=== PATIENT | female | born 1955 | race Caucasian/White ===

== ENCOUNTER 2018-02-07 07:45 | Outpatient (CLI) | payer OTHER ==
--- NOTE | 2018-02-12 13:15 | Mammography Report ---
DIGITAL SCREENING MAMMOGRAM: 02/07/2018 CLINICAL INDICATION: A 62-year-old with family history of breast cancer, history of benign biopsy for screening. COMPARISON: 07/2011, 07/2010, 03/2008. TECHNIQUE: Routine CC and MLO projections were obtained of the breasts. FINDINGS: The breasts again demonstrate scattered fibroglandular densities bilaterally. Post-biopsy changes in the right lower inner posterior breast are stable. Coarse and punctate, typically benign calcifications are present. No suspicious masses, clustered microcalcifications, or regions of architectural distortion are identified. IMPRESSION: BENIGN FINDINGS. RECOMMENDATION: Routine annual screening unless otherwise clinically indicated. BI-RADS CATEGORY 2 - BENIGN FINDINGS. STANDARD QUALIFYING STATEMENTS: 1. This examination was reviewed with the aid of Computer-Aided Detection (CAD). 2. A negative or benign imaging report should not delay biopsy if clinically suspicious findings are present. Consider surgical consultation if warranted. More than 5% of cancers are not identified by imaging. 3. Dense breasts may obscure an underlying neoplasm. TD: 02/12/2018 12:53
== END 2018-02-07 07:46 | disposition home or self-care (01) ==
LOC: DI 07:45
PROVIDERS: ATTEND Physician Assistant
DX: Z12.31 Encounter for screening mammogram for malignant neoplasm of breast (principal)
CPT/HCPCS: 77067

== ENCOUNTER 2018-02-07 07:56 | Outpatient (CLI) | payer OTHER ==
--- NOTE | 2018-02-07 09:58 | Ultrasound Report ---
SCREENING AORTA ULTRASOUND: 02/07/2018 COMPARISON: No comparison. INDICATION: Screening for AAA. TECHNIQUE: Real-time scanning was performed with member service representative static images obtained. FINDINGS No evidence of abdominal aortic aneurysm. No appreciable plaque. Proximal aorta 2.3 cm. Mid aorta 1.9 cm. Distal aorta 1.9 cm. Right iliac artery 1.3 cm. Left iliac artery 1.3 cm. IMPRESSION: NO EVIDENCE OF ABDOMINAL AORTIC ANEURYSM. ADDENDUM 02/08/2018 TO AORTA SCREENING ULTRASOUND of 02/07/2018 ADDENDUM: Upon further review, there is an ill-defined echogenic focus in the left lobe of the liver that is poorly evaluated, but warrants additional imaging. Recommend dedicated abdominal ultrasound for further evaluation of the liver. These results were discussed with the ordering provider 02/08/18 at 1:00 p.m. and they expressed understanding. (addendum info:) TD: 02/08/2018 12:52 TD: 02/07/2018 09:58 JEREMIAH
== END 2018-02-07 07:57 | disposition home or self-care (01) ==
LOC: DI 07:56
PROVIDERS: ATTEND Physician Assistant
DX: Z13.89 Encounter for screening for other disorder (principal); F17.200 Nicotine dependence, unspecified, uncomplicated
CPT/HCPCS: 76706

== ENCOUNTER 2018-10-11 07:55 | Outpatient (CLI) | payer OTHER ==
[2018-10-11 08:41] LABS: BASOPHILS % (AUTO) 0.7 %; EOSINOPHILS # (AUTO) 0.1 10^3/uL (0.0-0.7); EOSINOPHILS % (AUTO) 1.8 %; LYMPHOCYTES # (AUTO) 1.4 10^3/uL (1.5-3.5); LYMPHOCYTES % (AUTO) 22.1 %; MEAN CORPUSCULAR HEMOGLOBIN 31.6 pg (27.0-31.0); MEAN CORPUSCULAR HGB CONC 33.9 g/dL (32.0-36.0); MEAN CORPUSCULAR VOLUME 93.2 fL (81.0-99.0); MEAN PLATELET VOLUME 7.8 fL (7.9-10.8); MONOCYTES # (AUTO) 0.6 10^3/uL (0.0-1.0); MONOCYTES % (AUTO) 9.8 %; NEUTROPHILS # (AUTO) 4.3 10^3/uL (1.5-6.6); NEUTROPHILS % (AUTO) 65.6 %; PLT - PLATELET COUNT 246 10^3/uL (130-450); RED BLOOD COUNT 4.44 10^6/uL (4.20-5.40); RED CELL DISTRIBUTION WIDTH 14.2 % (12.0-15.0); WHITE BLOOD COUNT 6.5 x10^3/uL (4.8-10.8)
[2018-10-11 08:49] LABS: ALBUMIN 4.2 g/dL (3.2-5.5); ALBUMIN/GLOBULIN RATIO 1.3 (1.0-2.2); BILIRUBIN,TOTAL 0.9 mg/dL (0.2-1.0); CALCIUM 9.1 mg/dL (8.5-10.3); CREATININE 0.8 mg/dL (0.4-1.0); TOTAL PROTEIN 7.4 g/dL (6.7-8.2)
== END 2018-10-11 07:56 | disposition home or self-care (01) ==
LOC: RT 07:55
PROVIDERS: ATTEND Internal Medicine Gastroenterology
DX: I10 Essential (primary) hypertension (principal); R00.2 Palpitations; R10.11 Right upper quadrant pain
CPT/HCPCS: 36415; 80053; 83690; 85025; 93005

== ENCOUNTER 2018-10-24 07:58 | Day surgery (SDC) | payer OTHER ==
[2018-10-24] MEDS ORDERED: LIDO GARGLE 30 ML BOTTLE ONE (08:27)
[2018-10-24] MEDS ORDERED: LACTATED RINGERS 1,000 ML IV ONE ×2 (08:30→10:15)
[2018-10-24] MEDS ORDERED: MIDAZOLAM 2 MG/2 ML VIAL IVP ONE (09:40)
[2018-10-24] MEDS ORDERED: fentaNYL 250 MCG/5 ML VIAL IVP ONE (09:40)
[2018-10-24 10:55] VITALS: BP 122/86
== END 2018-10-24 07:59 | disposition home or self-care (01) ==
LOC: SDS 07:58
PROVIDERS: ATTEND Internal Medicine Gastroenterology
PROC: 0DBN8ZZ Excision of Sigmoid Colon, Via Natural or Artificial Opening Endoscopic (ICD-10-PCS; principal; 2018-10-24 09:15)
PROC: 0DB98ZX Excision of Duodenum, Via Natural or Artificial Opening Endoscopic, Diagnostic (ICD-10-PCS; 2018-10-24 09:15)
DX: Z12.11 Encounter for screening for malignant neoplasm of colon (principal); R10.11 Right upper quadrant pain; I10 Essential (primary) hypertension; E78.00 Pure hypercholesterolemia, unspecified; D12.5 Benign neoplasm of sigmoid colon; F17.210 Nicotine dependence, cigarettes, uncomplicated
CPT/HCPCS: 43239; 45380; A9270; J3010; J7120

== ENCOUNTER 2018-12-30 22:25 | Emergency (ER) | payer OTHER ==
--- NOTE | 2018-12-30 23:54 | ED Physician Documentation ---
PD HPI LOWER EXT INJURY - Stated complaint Stated Complaint: RT KNEE PX - Chief complaint Chief Complaint: Ext Problem - History obtained from History obtained from: Patient - History of Present Illness PD HPI LOW EXT INJURY LOCATION: Right, Knee Type of injury: Twist (2 weeks ago with some pain then, but hurting mainly the past few days, worse today.). No: Fall Timing - onset: How many weeks ago (2) Timing - duration: Weeks (2) Timing - details: Gradual onset, Still present (worse the past few days and today) Worsened by: Palpating (side and back), Other (walking hurts the most) Associated symptoms: Other (some clicking and popping). 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 HEENT: Other - Present Medications Home Medications: Ambulatory Orders Medication Instructions Recorded Confirmed Aspirin 81 mg PO 10/24/18 Cholecalciferol (Vitamin D3) 2,000 unit PO 10/24/18 [Vitamin D] Fluoxetine HCl 40 mg PO 10/24/18 Levothyroxine Sodium [Levoxyl] 175 mcg PO 10/24/18 Losartan [Cozaar] 50 mg PO DAILY 10/24/18 10/24/18 Lovastatin 20 mg PO 10/24/18 Metoprolol Succinate 25 mg PO 10/24/18 - Allergies Allergies/Adverse Reactions: Allergies Allergy/AdvReac Type Severity Reaction Status Date / Time No Known Drug Allergies Allergy Verified 10/24/18 08:32 - Social History Does the pt smoke?: No Smoking Status: Never smoker Does the pt drink ETOH?: No - POLST Patient has POLST: No PD ED PE NORMAL - Vitals Vital signs reviewed: Yes - General General: Alert and oriented X 3, No acute distress, Well developed/nourished - Back Back: No CVA TTP, No spinal TTP - Derm Derm: Normal color, Warm and dry, No rash - Extremities Extremities: No edema, No calf tenderness / cord, Other (right knee with some tenderness posteriorly and medially. No effusion. No redness nor skin lesions. Pain with passive ROM, but no crepitance. No noted clicking. ) - Neuro Neuro: Alert and oriented X 3, No motor deficit, No sensory deficit Results - Vitals Vitals: Vital Signs - 24 hr 12/30/18 12/31/18 22:31 01:26 Temperature 37.5 C 36.7 C Heart Rate 75 65 Respiratory 16 14 Rate Blood Pressure 136/94 H 143/98 H O2 Saturation 100 97 Oxygen O2 Source Room air - Rads (name of study) right knee Radiology: Prelim report reviewed (no acute bony process. Arthritic changes noted.), EMP read contemporaneously PD MEDICAL DECISION MAKING - ED course Complexity details: re-evaluated patient (she has taken Aleve couple of times past few days. Will have her use NSAIDs regularly. She declined stronger pain meds. ), considered differential (sounds like arthritis or possible meniscal. ), d/w patient Departure - Departure Disposition: 01 Home, Self Care Clinical Impression: Right knee pain Qualifiers: Chronicity: acute Qualified Code(s): M25.561 - Pain in right knee Condition: Stable Record reviewed to determine appropriate education?: Yes Instructions: ED Meniscal Injury Knee Poss Follow-Up: Jeni Dolan PA [Primary Care Provider] - [facility] [Provider Group] Comments: I think your pain may either be arthritis to the knee or possibly some meniscal inflammation. Take the Aleve at home 2 tablets 3 times a day for the next week. Add Tylenol if needed for pains. Follow-up with your primary care or orthopedics if not improved over that time for further evaluation and treatment. Discharge Date/Time: 12/31/18 01:40
[2018-12-31] MEDS ORDERED: ACETAMINOPHEN 325 MG TABLET PO STA (00:13)
[2018-12-31] MEDS ORDERED: DEXAMETHASONE 10 MG/ML VIAL PO STA (01:01)
--- NOTE | 2018-12-31 01:06 | XRAY Report ---
Reason: knee pain for a week or so Procedure Date: 12/31/2018 Accession Number: [id number] / [id number] Procedure: XR - Knee 3 View RT CPT Code: FULL RESULT: EXAM: RIGHT KNEE RADIOGRAPHY EXAM DATE: 12/31/2018 12:52 AM. CLINICAL HISTORY: Knee pain for a week or so. COMPARISON: None. TECHNIQUE: 3 views. FINDINGS: Bones: Normal. No fractures or bone lesions. Joints: There are degenerative changes at all 3 compartments of the knee. There are marginal osteophytes. There is no chondrocalcinosis. No significant joint effusion. Soft Tissues: Normal. No soft tissue swelling. IMPRESSION: Degenerative changes at all 3 compartments of the knee. No acute findings. RADIA
[2018-12-31 01:27] VITALS: BP 143/98
== END 2018-12-31 01:40 | disposition home or self-care (01) ==
LOC: ED 22:25
DX: M25.561 Pain in right knee (principal); I10 Essential (primary) hypertension; E78.00 Pure hypercholesterolemia, unspecified; E03.9 Hypothyroidism, unspecified
CPT/HCPCS: 73562; 99283; A9270

== ENCOUNTER 2019-07-17 08:52 | Day surgery (SDC) | payer OTHER ==
[~2019-07-17 08:52] MED LIST: CYCLOPENTOLATE 1% OPHTH DROPS 2 ML ONE; KETOROLAC 0.45% OPHTH DROPS ONE; PHENYLEPHRINE 2.5% OPHTH 2 ML DROPS ONE; PROPARACAINE 0.5% OPHTH DROPS 15 ML ONE
[2019-07-17] MEDS ORDERED: MIDAZOLAM 2 MG/2 ML VIAL IVP ONE (08:53)
--- NOTE | 2019-07-17 09:07 | ANESTHESIA ---
Pre-Anesthesia VS, & Labs - Diagnosis right senile combined cataract - Procedure Right cataract extraction with intraocular lens implant Vital Signs: 149/88, 16, 65, 99% Height 5 ft 6 in Body Mass Index 38.0 - NPO >8 hours - Is Patient ?: No Home Medications and Allergies Aspirin 81 mg PO 10/24/18 Cholecalciferol (Vitamin D3) [Vitamin D] 2,000 unit PO 10/24/18 Fluoxetine HCl 40 mg PO 10/24/18 Levothyroxine Sodium [Levoxyl] 175 mcg PO 10/24/18 Losartan [Cozaar] 50 mg PO DAILY 10/24/18 Lovastatin 20 mg PO 10/24/18 Metoprolol Succinate 25 mg PO 10/24/18 Allergies/Adverse Reactions: Allergies Allergy/AdvReac Type Severity Reaction Status Date / Time No Known Drug Allergies Allergy Verified 10/24/18 08:32 Anes History & Medical History - Anesthetic History Anesthesia Complications: reports: No previous complications - Medical History Cardiovascular: reports: Hypertension, High cholesterol, Murmur (unable to hear) Pulmonary: reports: None Gastrointestinal: reports: GERD Urinary: reports: None Musculoskeletal: reports: None Endocrine/Autoimmune: reports: HyPOthyroidism Skin: reports: None Smoking Status: Never smoker - Surgical History Eyes Ears Nose Throat (EENT): Other Gynecologic: section Orthopedic: Other Exam General: Alert Dental: WNL Mouth Opening: Greater than 4 Fingerbreadths Neck Mobility: Normal Mallampati classification: II (small mouth) Thyromental Distance: 4-6 cm Respiratory: Lungs clear, Normal breath sounds Cardiovascular: Regular rate, Normal S1, Normal S2 Plan Anesthesia Type: MAC Consent for Procedure(s) Verified and Reviewed: Yes Code Status: Attempt Resuscitation ASA classification: 2-Mild systemic disease Is this case an emergency?: No
[2019-07-17] MEDS ORDERED: LACTATED RINGERS 500 ML IV ONE (09:09)
[2019-07-17] MEDS ORDERED: KETOROLAC 0.45% OPHTH DROPS RIGHTEYE ONE (09:13)
[2019-07-17] MEDS ORDERED: PROPARACAINE 0.5% OPHTH DROPS 15 ML RIGHTEYE ONE ×2 (09:13→09:51)
[2019-07-17] MEDS ORDERED: CYCLOPENTOLATE 1% OPHTH DROPS 2 ML RIGHTEYE ONE (09:13)
[2019-07-17] MEDS ORDERED: PHENYLEPHRINE 2.5% OPHTH 2 ML DROPS RIGHTEYE ONE (09:13)
[2019-07-17] MEDS ORDERED: CHONDR SULF/HYALURONATE SYRINGE IO ONE (09:50)
[2019-07-17] MEDS ORDERED: EPINEPHrine 1 MG/ML AMP IVP ONE (09:50)
[2019-07-17] MEDS ORDERED: TIMOLOL 0.5% OPHTH DROPS OPTH ONE (09:50)
[2019-07-17] MEDS ORDERED: BRIMONIDINE 0.2% OPHTH DROPS 5 ML OPTH ONE (09:50)
[2019-07-17] MEDS ORDERED: BSS/LIDOCAINE/EPINEPHRINE 1 ML SYRINGE IO ONE (09:51)
[2019-07-17] MEDS ORDERED: TRIAMCIN/MOXIFLOX OPHTHALMIC 0.6 ML VIAL IO ONE ×2 (09:51→10:18)
[2019-07-17] MEDS ORDERED: VANCOMYCIN OPHTHALMI 8MG/0.8ML 8 MG/0.8 ML SYRINGE IO ONE ×2 (09:51→10:19)
--- NOTE | 2019-07-17 10:18 | OPERATIVE REPORT ---
DATE OF SERVICE: 07/17/2019 Physician: Jesus Bertrand MD PREOPERATIVE DIAGNOSIS: Visually significant cataract, right eye. This was her first cataract surge ry. POSTOPERATIVE DIAGNOSIS: Visually significant cataract, right eye. This was her first cataract surg delilah. DESCRIPTION OF PROCEDURE: Phacoemulsification with posterior chamber intraocular lens implant, right eye. SURGEON: Jesus Bertrand MD ANESTHESIA: Monitored anesthesia care. COMPLICATIONS: None. OPERATIVE INDICATIONS: This is a 63-year-old woman with progressive vision loss in the right eye due to 2+ nuclear sclerotic and 2-3+ posterior subcapsular cataract. Best corrected visual acuity was 2 0/25, with glare to 20/200 in the right eye. Indications for surgery are overall decrease in vision, difficulty seeing words on a computer screen, difficulty reading, difficulty seeing words, closed ca ption or game scores on TV, difficulty seeing street signs, difficulty driving in low light or at nig ht, difficulty driving at night because headlights from other vehicles, and difficulty with glare or bright lights in any situation. She was consented at length concerning risks and benefits of catarac t surgery, after which she expressed a desire to proceed with surgery. OPERATIVE PROCEDURE: The patient was taken to OR #3 and placed under monitored anesthesia care. A s urgical timeout was conducted confirming correct patient, correct procedure, and correct surgical sit e. She was given topical anesthesia, and prepped and draped in the usual sterile fashion. The eye w as entered at the 12 and 9 o'clock positions. Intracameral Shugarcaine was injected into the anterio r chamber, followed by Viscoat. A continuous-tear curvilinear capsulorrhexis was performed. The nuc leus was hydrodissected and phacoemulsified. Cortex was evacuated using automated infusion and aspir ation. Provisc was injected in the capsular bag, and a 22.5 diopter intraocular lens inserted in the bag. Approximately 0.8 mL of a mixture of triamcinolone, moxifloxacin and vancomycin was injected s ubconjunctivally in the superior quadrant for infection and inflammation prophylaxis. I and A, was u sed to evacuate the viscoelastic materials. The eye was inflated to physiologic pressure using tamir natalya salt solution and found to be watertight. The patient was taken from the operating room in good condition and given postoperative instructions. TD: 07/17/2019 10:06
[2019-07-17] MEDS ORDERED: BSS/LIDOCAINE/EPINEPHRINE 1 ML SYRINGE ONE (10:19)
[2019-07-17] MEDS ORDERED: BRIMONIDINE 0.2% OPHTH DROPS 5 ML ONE (10:19)
[2019-07-17] MEDS ORDERED: EPINEPHrine 1 MG/ML AMP ONE (10:19)
[2019-07-17] MEDS ORDERED: TIMOLOL 0.5% OPHTH DROPS ONE (10:19)
[2019-07-17 10:55] VITALS: BP 126/68
== END 2019-07-17 08:53 | disposition home or self-care (01) ==
LOC: SDS 08:52
PROVIDERS: ATTEND Ophthalmology
PROC: 08RJ3JZ Replacement of Right Lens with Synthetic Substitute, Percutaneous Approach (ICD-10-PCS; principal; 2019-07-17 10:00)
DX: H25.811 Combined forms of age-related cataract, right eye (principal); I10 Essential (primary) hypertension; E03.9 Hypothyroidism, unspecified; Z87.891 Personal history of nicotine dependence
CPT/HCPCS: 66984; A9270; J3490; V2632

== ENCOUNTER 2019-09-03 08:42 | Outpatient (CLI) | payer OTHER ==
[2019-09-03 09:25] LABS: ALBUMIN 4.2 g/dL (3.2-5.5); ALBUMIN/GLOBULIN RATIO 1.4 (1.0-2.2); ALKALINE PHOSPHATASE 64 IU/L (42-121); ALT ALANINE AMINOTRANSFERASE 34 IU/L (10-60); AST ASPARTATE AMINOTRANSFERASE 28 IU/L (10-42); BILIRUBIN,TOTAL 0.8 mg/dL (0.2-1.0); BUN - BLOOD UREA NITROGEN 16 mg/dL (6-20); CALCIUM 9.2 mg/dL (8.5-10.3); CARBON DIOXIDE - CO2 26 mmol/L (21-32); CHLORIDE 105 mmol/L (101-111); CHOL/HDL RATIO 3.7 (<4.4); CHOLESTEROL 158 mg/dL; CREATININE 0.7 mg/dL (0.4-1.0); GFR - MDRD 85 (>89); GLUCOSE 114 mg/dL (70-100); HDL CHOLESTEROL 43 mg/dL; LDL CHOLESTEROL,CALCULATED 90 mg/dL; LDL/HDL RATIO 2.1 (<4.4); SODIUM 138 mmol/L (135-145); TOTAL PROTEIN 7.1 g/dL (6.7-8.2); VLDL CHOLESTEROL 25 mg/dL
== END 2019-09-03 08:43 | disposition home or self-care (01) ==
LOC: LAB 08:42
PROVIDERS: ATTEND Physician Assistant
DX: E03.9 Hypothyroidism, unspecified (principal); E78.2 Mixed hyperlipidemia
CPT/HCPCS: 36415; 80053; 80061; 83721; 84443

== ENCOUNTER 2020-08-04 08:29 | Outpatient (CLI) | payer BC ==
[2020-08-04 08:41] LABS: BASOPHILS # (AUTO) 0.1 10^3/uL (0.0-0.1); BASOPHILS % (AUTO) 0.9 %; EOSINOPHILS # (AUTO) 0.1 10^3/uL (0.0-0.7); EOSINOPHILS % (AUTO) 1.7 %; HGB - HEMOGLOBIN 14.2 g/dL (12.0-16.0); LYMPHOCYTES # (AUTO) 2.1 10^3/uL (1.5-3.5); LYMPHOCYTES % (AUTO) 30.1 %; MEAN CORPUSCULAR HEMOGLOBIN 30.6 pg (27.0-31.0); MEAN CORPUSCULAR HGB CONC 31.5 g/dL (32.0-36.0); MEAN CORPUSCULAR VOLUME 97.2 fL (81.0-99.0); MONOCYTES # (AUTO) 0.8 10^3/uL (0.0-1.0); MONOCYTES % (AUTO) 10.8 %; NEUTROPHILS # (AUTO) 3.9 10^3/uL (1.5-6.6); NEUTROPHILS % (AUTO) 56.2 %; PLT - PLATELET COUNT 295 10^3/uL (130-450); RED BLOOD COUNT 4.64 10^6/uL (4.20-5.40); WHITE BLOOD COUNT 6.9 x10^3/uL (4.8-10.8)
[2020-08-04 08:57] LABS: ALBUMIN 4.3 g/dL (3.2-5.5); ALBUMIN/GLOBULIN RATIO 1.3 (1.0-2.2); ALKALINE PHOSPHATASE 62 IU/L (42-121); ALT ALANINE AMINOTRANSFERASE 22 IU/L (10-60); AST ASPARTATE AMINOTRANSFERASE 21 IU/L (10-42); BILIRUBIN,TOTAL 0.7 mg/dL (0.2-1.0); BUN - BLOOD UREA NITROGEN 13 mg/dL (6-20); CALCIUM 9.4 mg/dL (8.5-10.3); CARBON DIOXIDE - CO2 24 mmol/L (21-32); CHLORIDE 102 mmol/L (101-111); CHOL/HDL RATIO 3.7 (<4.4); CHOLESTEROL 184 mg/dL; CREATININE 0.8 mg/dL (0.4-1.0); GLUCOSE 104 mg/dL (70-100); HDL CHOLESTEROL 50 mg/dL; LDL CHOLESTEROL,CALCULATED 102 mg/dL; SODIUM 139 mmol/L (135-145); TOTAL PROTEIN 7.5 g/dL (6.7-8.2); VLDL CHOLESTEROL 32 mg/dL
[2020-08-04 12:15] LABS: HEMOGLOBIN A1c% 5.2 % (4.27-6.07)
== END 2020-08-04 08:30 | disposition home or self-care (01) ==
LOC: LAB 08:29
PROVIDERS: ATTEND Nurse Practitioner Family
DX: E03.9 Hypothyroidism, unspecified (principal); I10 Essential (primary) hypertension; E78.5 Hyperlipidemia, unspecified; R73.01 Impaired fasting glucose
CPT/HCPCS: 36415; 80053; 80061; 83036; 83721; 84443; 85025

== ENCOUNTER 2020-12-16 08:23 | Outpatient (CLI) | payer OTHER ==
--- NOTE | 2020-12-16 17:16 | DEXA Report ---
PROCEDURE: Dexa Spine and/or Hip INDICATIONS: MENOPAUSAL, FAMILY HX OF OSTEOPOROSIS TECHNIQUE: Dual energy x-ray absorptiometry (DXA) was performed on a Ensenda System. Regions measur ed are the AP Spine, femoral neck, and if needed forearm. COMPARISON: None. FINDINGS: Lumbar Spine: Bone Mineral Density 1.0 A0 g/cm/cm,T score -0.8, normal Left Hip: Bone Mineral Density 0.860 g/cm/cm,T score -1.2, osteopenia Left Femoral Neck: Bone Mineral Density 0.729 g/cm/cm, T score -2.2, osteopenia (T score greater or equal to -1.0: NORMAL) (T score from -1.1 to -2.4: OSTEOPENIA) (T score less than or equal to -2.5 to: OSTEOPOROSIS) Impression: Osteopenia. Patients with diagnosis of osteoporosis or osteopenia should have regular bone mineral density assess ment. For those eligible for Medicare, routine testing is allowed once every 2 years. Testing frequ ency can be increased for patients who have rapidly progressing disease or for those who are receivin g medical therapy to restore bone mass. Reviewed by: Radha Zee MD, PhD on 12/16/2020 5:14 PM PDT Approved by: Radha Zee MD, PhD on 12/16/2020 5:14 PM PDT Station ID: [id number]
== END 2020-12-16 08:24 | disposition home or self-care (01) ==
LOC: DI 08:23
PROVIDERS: ATTEND Physician Assistant
DX: M85.89 Other specified disorders of bone density and structure, multiple sites (principal)

== ENCOUNTER 2020-12-16 08:28 | Outpatient (CLI) | payer OTHER | END 2020-12-16 08:29 | disposition home or self-care (01) | LOC: DI 08:28 | PROVIDERS: ATTEND Physician Assistant | DX: Z53.9 Procedure and treatment not carried out, unspecified reason (principal) ==

== ENCOUNTER 2020-12-16 08:52 | Outpatient (CLI) | payer OTHER ==
--- NOTE | 2020-12-16 09:43 | XRAY Report ---
PROCEDURE: Knee 3 View LT INDICATIONS: PAIN IN LEFT KNEE TECHNIQUE: 3 views of the left knee(s) were acquired. COMPARISON: None. FINDINGS: Moderate degenerative changes about the knee, worst in the medial femorotibial compartment where ther e is near-complete loss of joint space with subchondral cystic change and sclerosis. Marginal osteoar throsis is noted in all 3 compartments. Small suprapatellar joint effusion. IMPRESSION: Moderate tricompartment osteophytes right is worse in the medial femorotibial compartmen t. Reviewed by: Ganesh Rodriguez MD on 12/16/2020 9:42 AM PDT Approved by: Ganesh Rodriguez MD on 12/16/2020 9:42 AM PDT Station ID: [id number]
== END 2020-12-16 08:53 | disposition home or self-care (01) ==
LOC: DI 08:52
PROVIDERS: ATTEND Physician Assistant
DX: M25.762 Osteophyte, left knee (principal); M85.89 Other specified disorders of bone density and structure, multiple sites

== ENCOUNTER 2023-03-09 08:30 | Outpatient (CLI) | payer MEDICARE ==
[2023-03-09 08:45] LABS: BASOPHILS # (AUTO) 0.1 10^3/uL (0.0-0.1); EOSINOPHILS # (AUTO) 0.1 10^3/uL (0.0-0.7); EOSINOPHILS % (AUTO) 1.9 %; HCT - HEMATOCRIT 41.4 % (37.0-47.0); HGB - HEMOGLOBIN 13.5 g/dL (12.0-16.0); LYMPHOCYTES # (AUTO) 1.7 10^3/uL (1.5-3.5); LYMPHOCYTES % (AUTO) 35.3 %; MEAN CORPUSCULAR HGB CONC 32.6 g/dL (32.0-36.0); MEAN PLATELET VOLUME 9.8 fL (7.9-10.8); MONOCYTES # (AUTO) 0.5 10^3/uL (0.0-1.0); MONOCYTES % (AUTO) 10.4 %; NEUTROPHILS # (AUTO) 2.4 10^3/uL (1.5-6.6); PLT - PLATELET COUNT 260 10^3/uL (130-450); RED CELL DISTRIBUTION WIDTH 13.2 % (12.0-15.0); WHITE BLOOD COUNT 4.8 x10^3/uL (4.8-10.8)
[2023-03-09 09:08] LABS: ESTIMATED AVERAGE GLUCOSE 111 mg/dL (70-100); HEMOGLOBIN A1c% 5.5 % (4.27-6.07)
[2023-03-09 09:09] LABS: % IRON SATURATION 20 % (20-50); ALBUMIN/GLOBULIN RATIO 1.1 (1.0-2.2); ALKALINE PHOSPHATASE 60 IU/L (42-121); ALT ALANINE AMINOTRANSFERASE 33 IU/L (10-60); AST ASPARTATE AMINOTRANSFERASE 28 IU/L (10-42); BILIRUBIN,TOTAL 0.6 mg/dL (0.2-1.0); BUN - BLOOD UREA NITROGEN 16 mg/dL (6-20); CALCIUM 8.7 mg/dL (8.5-10.3); CARBON DIOXIDE - CO2 25 mmol/L (21-32); CHLORIDE 106 mmol/L (101-111); CHOL/HDL RATIO 2.9 (<4.4); CHOLESTEROL 184 mg/dL; CREATININE 0.7 mg/dL (0.4-1.0); GAMMA GLUTAMYL TRANSPEPTIDASE 16 IU/L (8-38); GFR - MDRD 84 (>89); GLUCOSE 109 mg/dL (70-100); HDL CHOLESTEROL 64 mg/dL; IRON 84 ug/dL (28-170); LDL CHOLESTEROL,CALCULATED 80 mg/dL; LDL/HDL RATIO 1.3 (<4.4); POTASSIUM 4.1 mmol/L (3.5-5.0); SODIUM 141 mmol/L (135-145); TOTAL IRON BINDING CAPACITY 414 ug/dL (250-450); TOTAL PROTEIN 7.6 g/dL (6.7-8.2); TRANSFERRIN 296 mg/dL (192-382); TRIGLYCERIDES 200 mg/dL; VLDL CHOLESTEROL 40 mg/dL
[2023-03-09 09:19] LABS: THYROID STIMULATING HORMONE 1.08 uIU/mL (0.34-5.60)
[2023-03-09 09:21] LABS: FREE T4 (FREE THYROXINE) 0.98 ng/dL (0.58-1.64)
[2023-03-09 09:26] LABS: FERRITIN 364.3 ng/mL (11.0-306.8)
== END 2023-03-09 08:31 | disposition home or self-care (01) ==
LOC: LAB 08:30
PROVIDERS: ATTEND Nurse Practitioner
DX: I10 Essential (primary) hypertension (principal); E78.5 Hyperlipidemia, unspecified; R73.9 Hyperglycemia, unspecified; E03.9 Hypothyroidism, unspecified; Z98.84 Bariatric surgery status; F10.90 Alcohol use, unspecified, uncomplicated
CPT/HCPCS: 36415; 80053; 80061; 82607; 82728; 82977; 83036; 83540; 83721; 84439; 84443; 84466; 85025

== ENCOUNTER 2023-05-15 08:06 | Outpatient (CLI) | payer MEDICARE ==
--- NOTE | 2023-05-15 10:10 | DEXA Report ---
PROCEDURE: Dexa Spine and/or Hip INDICATIONS: POSTMENOPAUSAL TECHNIQUE: Dual energy x-ray absorptiometry (DXA) was performed on a [employer]age System. Regions measur ed are the AP Spine, femoral neck, and if needed forearm. COMPARISON: 12/16/2020 FINDINGS: Lumbar Spine: Bone Mineral Density 1.064 g/cm/cm,T score -1. There has been no statistically significant change in bone mineral density since the prior study. Left Femoral Neck: Bone Mineral Density 0.729 g/cm/cm, T score -2.2. Left Hip: Bone Mineral Density 0.881 g/cm/cm,T score -1. There has been no statistically significant change in bone mineral density since the prior study. (T score greater or equal to -1.0: NORMAL) (T score from -1.1 to -2.4: OSTEOPENIA) (T score less than or equal to -2.5 to: OSTEOPOROSIS) Impression: By WHO criteria, this patient has low bone density (osteopenia). No statistical interval change in bone minteral density of the lumbar spine. No statistical interval change in bone minteral density of the hip. Patients with diagnosis of osteoporosis or osteopenia should have regular bone mineral density assess ment. For those eligible for Medicare, routine testing is allowed once every 2 years. Testing frequ ency can be increased for patients who have rapidly progressing disease or for those who are receivin g medical therapy to restore bone mass. Reviewed by: Damir Kern on 05/15/2023 10:09 AM PDT Approved by: Damir Kern on 05/15/2023 10:09 AM PDT Station ID: [id number]
== END 2023-05-15 08:07 | disposition home or self-care (01) ==
LOC: DI 08:06
PROVIDERS: ATTEND Nurse Practitioner
DX: Z78.0 Asymptomatic menopausal state (principal); M85.80 Other specified disorders of bone density and structure, unspecified site

== ENCOUNTER 2023-08-02 06:57 | Day surgery (SDC) | payer MEDICARE ==
[2023-08-02] MEDS ORDERED: LACTATED RINGERS 1,000 ML IV ONE (07:07)
--- NOTE | 2023-08-02 07:44 | ANESTHESIA ---
Pre-Anesthesia VS, & Labs - Diagnosis left eye cataract - Procedure left eye cataract extraction with IOL implant Vital Signs: Temp Pulse Resp BP Pulse Ox O2 Flow Rate 36.8 C 69 18 122/81 H 96 08/02/23 07:07 08/02/23 07:07 08/02/23 07:07 08/02/23 07:07 08/02/23 07:07 Height: 5 ft 6 in Weight (kg): 107.6 kg Body Mass Index: 38.2 BMI Classification: Obese - NPO >8 hours - Is Patient ?: No Home Medications and Allergies Home Medications: Ambulatory Orders Alprazolam [Xanax] 0.25 mg PO DAILY 08/01/23 Cholecalciferol (Vitamin D3) [Vitamin D3] 1,000 unit PO DAILY 08/01/23 Rosuvastatin Calcium 20 mg PO DAILY 08/01/23 Fluoxetine HCl 40 mg PO DAILY 10/24/18 Levothyroxine Sodium [Levoxyl] 175 mcg PO DAILY 10/24/18 Losartan [Cozaar] 100 mg PO DAILY 10/24/18 Metoprolol Succinate 12.5 mg PO BID 10/24/18 Alprazolam [Xanax] 0.25 mg PO DAILY 08/01/23 Cholecalciferol (Vitamin D3) [Vitamin D3] 1,000 unit PO DAILY 08/01/23 Rosuvastatin Calcium 20 mg PO DAILY 08/01/23 Allergies/Adverse Reactions: Allergies Allergy/AdvReac Type Severity Reaction Status Date / Time No Known Drug Allergies Allergy Verified 08/02/23 07:07 Anes History & Medical History - Anesthetic History Anesthesia Complications: reports: No previous complications - Medical History Cardiovascular: reports: Hypertension, High cholesterol Pulmonary: reports: None Gastrointestinal: reports: GERD Urinary: reports: None Neuro: reports: None Musculoskeletal: reports: None Endocrine/Autoimmune: reports: HyPOthyroidism Skin: reports: None Smoking Status: Former smoker (quit 5 years ago) Psychosocial: reports: Anxiety, Alcohol (1-2 times per week, 2 glasses of wine) History of Cancer?: No - Surgical History Eyes Ears Nose Throat (EENT): reports: Cataracts, Other Gynecologic: reports: section Orthopedic: reports: Other Exam General: Alert, Oriented x3, Cooperative, No acute distress Dental: Poor dentition Mouth Openin Fingerbreadth Neck Mobility: Normal Mallampati classification: III Thyromental Distance: 4-6 cm Mental/Cognitive Status: Alert/Oriented X3, Normal for patient Plan Anesthesia Type: MAC Consent for Procedure(s) Verified and Reviewed: Yes Code Status: Attempt Resuscitation ASA classification: 2-Mild systemic disease Is this case an emergency?: No
[2023-08-02] MEDS ORDERED: EPINEPHrine 1 MG/ML AMP ONE (07:52)
[2023-08-02] MEDS ORDERED: TRIAMCIN/MOXIFLOX OPHTHALMIC 0.6 ML VIAL IO ONE ×2 (07:52→07:59)
[2023-08-02] MEDS ORDERED: BSS/LIDOCAINE/EPINEPHRINE 1 ML VIAL ONE (07:53)
[2023-08-02] MEDS ORDERED: BRIMONIDINE 0.2% OPHTH DROPS 5 ML ONE (07:53)
[2023-08-02] MEDS ORDERED: TIMOLOL 0.5% OPHTH DROPS ONE (07:53)
[2023-08-02] MEDS ORDERED: MIDAZOLAM 2 MG/2 ML VIAL ONE (07:54)
[2023-08-02] MEDS ORDERED: BRIMONIDINE 0.2% OPHTH DROPS 5 ML OPTH ONE (07:57)
[2023-08-02] MEDS ORDERED: TIMOLOL 0.5% OPHTH DROPS OPTH ONE (07:58)
[2023-08-02] MEDS ORDERED: EPINEPHrine 1 MG/ML AMP IR ONE (07:58)
[2023-08-02] MEDS ORDERED: BSS/LIDOCAINE/EPINEPHRINE 1 ML SYRINGE IO ONE (07:58)
[2023-08-02] MEDS ORDERED: PROPARACAINE 0.5% OPHTH DROPS 15 ML EACHEYE ONE (07:59)
[2023-08-02] MEDS ORDERED: VANCOMYCIN OPHTH (TOPICAL) 10 MG/ML SYRINGE TOP ONE (07:59)
[2023-08-02] MEDS ORDERED: fentaNYL 100 MCG/2 ML VIAL ONE (08:19)
[2023-08-02] MEDS ORDERED: LACTATED RINGERS 700 ML IV ONE (08:26)
--- NOTE | 2023-08-02 08:34 | OPERATIVE REPORT ---
Operative Report - Other Other Information/Narrative: Date of Surgery: 08/02/23 Preop Dx: Visually significant cataract left eye. Cataract surgery was performed in the right eye on . Postop Dx: Same Procedure: Phacoemulsification with posterior chamber intraocular lens implant left eye Surgeon: Dr. Jesus Bertrand Anesthesia: Monitored anesthesia care Complications: None Operative Indications: This is a 67-year-old F with progressive vision loss in the left eye due to 2-3+ nuclear sclerotic and 2+ posterior subcapsular cataract. Best corrected visual acuity was 20/30 with glare to 20/400 vision in the left eye. Indications for surgery were: - Overall decrease in vision - Difficulty seeing words on a computer screen - Difficulty reading - Difficulty seeing words, closed captions, or game scores on TV - Difficulty seeing street signs - Difficulty driving in low light or at night - Difficulty driving at night because of headlights from other vehicles - Difficulty with glare or bright lights in any situation The patient was consented at length concerning the risks and benefits of cataract surgery after which the patient expressed a desire to proceed with surgery. Operative Procedure: The patient was taken into OR#3 and placed under monitored anesthesia care. A surgical time-out was conducted confirming correct patient, correct procedure, and correct surgical site. The patient was given topical anesthesia and then prepped and draped in the usual sterile fashion. The eye was entered at the 6 and 3 oclock positions. Intracameral Shugarcaine was injected into the anterior chamber followed by a dispersive viscoelastic. A continuous-tear curvilinear capsulorhexis was performed. The nucleus was hydrodissected and phacoemulsified. The cortex was evacuated using automated infusion and aspiration. A cohesive viscoelastic was injected into the capsular bag and a 22.0 diopter intraocular lens was inserted into the bag. Infusion and aspiration were used to evacuate the viscoelastic materials from the eye. The wounds were hydrated and the eye inflated to physiologic pressure using balanced salt solution. Approximately 0.25ml of a mixture of triamcinolone and moxifloxacin was injected trans-sclerally into the vitreous in the inferotemporal quadrant using a 30 gauge cannula. An additional 0.25ml of a mixture of triamcinolone and moxifloxacin was injected subconjunctivally in the superior quadrant for infection and inflammation prophylaxis. Wound integrity was checked with Weck-Marsha sponges. The patient was taken from the operating room in good condition and given post-op instructions.
[2023-08-02 08:35] VITALS: O2SAT 97
--- NOTE | 2023-08-02 08:38 | ANESTHESIA POST OP EVALUATION ---
Anesthesia Post Eval - Post Anesthesia Eval Vitals: Last Vital Signs Temp 36.5 C 08/02/23 08:37 Pulse 60 08/02/23 08:37 Resp 18 08/02/23 08:37 BP 110/69 08/02/23 08:37 Pulse Ox 97 08/02/23 08:37 O2 Flow Rate CV Function Including HR & BP: Stable Pain Control: Satisfactory Nausea & Vomiting: Negative Mental Status: Baseline Respiratory Status: Airway Patent Hydration Status: Satisfactory Anesthesia Complications: None
[2023-08-02 08:44] VITALS: BP 110/69
== END 2023-08-02 06:58 | disposition home or self-care (01) ==
LOC: SDS 06:57
PROVIDERS: ATTEND Ophthalmology
DX: H25.812 Combined forms of age-related cataract, left eye (principal); Z98.41 Cataract extraction status, right eye; E66.9 Obesity, unspecified; Z68.38 Body mass index [BMI] 38.0-38.9, adult; E03.9 Hypothyroidism, unspecified; Z87.891 Personal history of nicotine dependence
CPT/HCPCS: 66984; A9270; J3490; J7120

== ENCOUNTER 2023-11-20 12:29 | Outpatient (CLI) | payer MEDICARE ==
[2023-11-20 17:55] LABS: BILIRUBIN,URINE NEGATIVE (NEGATIVE); GLUCOSE, URINE (UA) NEGATIVE (NEGATIVE); KETONES,URINE (UA) NEGATIVE (NEGATIVE); LEUKOCYTE ESTERASE, URINE NEGATIVE (NEGATIVE); NITRITE,URINE NEGATIVE (NEGATIVE); OCCULT BLOOD,URINE NEGATIVE (NEGATIVE); PH,URINE 5.5 PH (5.0-7.5); PROTEIN,URINE NEGATIVE (NEGATIVE); UROBILINOGEN,URINE 0.2 (NORMAL) E.U./dL (NORMAL)
[2023-11-20 17:59] LABS: BASOPHILS # (AUTO) 0.1 10^3/uL (0.0-0.1); BASOPHILS % (AUTO) 0.8 %; EOSINOPHILS # (AUTO) 0.1 10^3/uL (0.0-0.7); EOSINOPHILS % (AUTO) 1.7 %; HCT - HEMATOCRIT 41.8 % (37.0-47.0); HGB - HEMOGLOBIN 13.3 g/dL (12.0-16.0); LYMPHOCYTES # (AUTO) 1.8 10^3/uL (1.5-3.5); LYMPHOCYTES % (AUTO) 28.4 %; MEAN CORPUSCULAR HEMOGLOBIN 30.6 pg (27.0-31.0); MEAN CORPUSCULAR HGB CONC 31.8 g/dL (32.0-36.0); MEAN CORPUSCULAR VOLUME 96.1 fL (81.0-99.0); MEAN PLATELET VOLUME 11.1 fL (7.9-10.8); MONOCYTES # (AUTO) 0.7 10^3/uL (0.0-1.0); MONOCYTES % (AUTO) 10.8 %; NEUTROPHILS # (AUTO) 3.7 10^3/uL (1.5-6.6); PLT - PLATELET COUNT 269 10^3/uL (130-450); RED BLOOD COUNT 4.35 10^6/uL (4.20-5.40); RED CELL DISTRIBUTION WIDTH 13.1 % (12.0-15.0); WHITE BLOOD COUNT 6.4 x10^3/uL (4.8-10.8)
[2023-11-20 18:08] LABS: CLARITY,URINE CLEAR (CLEAR); RBC,URINE 0-5 /HPF (0-5); WBC,URINE 0-3 /HPF (0-5)
[2023-11-20 18:09] LABS: BACTERIA,URINE Few /HPF (None Seen); SQUAMOUS EPITHELIAL CELL,UR MOD Squamous (<= Few)
[2023-11-20 18:16] LABS: ALBUMIN 4.2 g/dL (3.2-5.5); ALBUMIN/GLOBULIN RATIO 1.6 (1.0-2.2); BILIRUBIN,TOTAL 0.8 mg/dL (0.2-1.0); CALCIUM 9.7 mg/dL (8.5-10.3); CREATININE 0.7 mg/dL (0.6-1.3); POTASSIUM 4.1 mmol/L (3.5-4.5); TOTAL PROTEIN 6.9 g/dL (6.4-8.9)
== END 2023-11-20 12:30 | disposition home or self-care (01) ==
LOC: LAB.N 12:29
PROVIDERS: ATTEND Nurse Practitioner
DX: R10.9 Unspecified abdominal pain (principal)
CPT/HCPCS: 36415; 80053; 81001; 82150; 83690; 85025; 87086

== ENCOUNTER 2023-12-15 09:11 | Outpatient (CLI) | payer MEDICARE ==
--- NOTE | 2023-12-16 08:10 | Ultrasound Report ---
PROCEDURE: Abdomen Complete INDICATIONS: ABD PAIN TECHNIQUE: Real-time scanning was performed of the abdominal and retroperitoneal organs, with image documentatio n. COMPARISON: None. FINDINGS: Liver: Increased liver echogenicity, commonly mild hepatic steatosis. Gallbladder: Unremarkable. Biliary ducts: Intrahepatic bile ducts are non-dilated. Extrahepatic bile duct caliber measures 3 m m. Normal is 6-7 mm or less in diameter, or 10 mm or less post-cholecystectomy. Pancreas: Visualized portions of the pancreas are sonographically normal. Spleen: Spleen is normal in size and homogeneous in echotexture. Kidneys: Kidneys are normal in size and echotexture. Right kidney measures 11.3 cm long; left kidne y measures 10.4 cm long. No hydronephrosis. Probable right renal stone measuring 4 mm.. No solid ma sses. No complex renal cystic lesions which require follow-up. Aorta: Visualized aorta is normal in caliber at 2.2 cm maximum diameter. Iliacs: Proximal common iliac arteries are normal in caliber at 0.9 cm on the right and 1.0 cm on th e left. IVC: Intrahepatic inferior vena cava is patent. Miscellaneous: No free abdominal fluid. IMPRESSION: 1. Likely diffuse hepatic steatosis. 2. No gallstone disease. 3. Probable small nonobstructing right renal stone. Reviewed by: Beto Lara MD on 12/16/2023 8:09 AM PDT Approved by: Beto Lara MD on 12/16/2023 8:09 AM PDT Station ID: [id number]
--- NOTE | 2023-12-16 09:19 | Ultrasound Report ---
PROCEDURE: Pelvic w/Transvaginal INDICATIONS: ABD PAIN TECHNIQUE: Real-time scanning was performed of the pelvic organs, with image documentation. Additional endovagi nal scanning was necessary due to incomplete visualization of the adnexal and endometrial structures by transabdominal scanning. COMPARISON: None. FINDINGS: Uterus: Uterus is anteverted and normal in size at 7.9 x 3.4 x 3.4 cm. The myometrium is heterogene ous. The endometrium measures 4 mm in combined thickness. No fibroids Ovaries: The right ovary measures 1.8 x 1.4 x 1.6 cm, with a calculated ovarian volume of 2.0 cc. T he left ovary is not identified, possibly secondary to involutional changes and overlying bowel gas. No adnexal masses. Other: No pathologic free abdominal or pelvic fluid. IMPRESSION: Unremarkable pelvic ultrasound in a postmenopausal female. Reviewed by: Beto Lara MD on 12/16/2023 9:18 AM PDT Approved by: Beto Lara MD on 12/16/2023 9:18 AM PDT Station ID: [id number]
== END 2023-12-15 09:12 | disposition home or self-care (01) ==
LOC: DI 09:11
PROVIDERS: ATTEND Nurse Practitioner
DX: R10.9 Unspecified abdominal pain (principal)

== ENCOUNTER 2024-04-02 09:18 | Outpatient (CLI) | payer MEDICARE ==
[2024-04-02 12:46] LABS: ALBUMIN 4.2 g/dL (3.2-5.5); ALBUMIN/GLOBULIN RATIO 1.7 (1.0-2.2); BILIRUBIN,TOTAL 0.5 mg/dL (0.2-1.0); CALCIUM 9.5 mg/dL (8.5-10.3); CREATININE 0.7 mg/dL (0.6-1.3); POTASSIUM 4.4 mmol/L (3.5-4.5); TOTAL PROTEIN 6.7 g/dL (6.4-8.9)
== END 2024-04-02 09:19 | disposition home or self-care (01) ==
LOC: LAB.N 09:18
PROVIDERS: ATTEND Nurse Practitioner
DX: I10 Essential (primary) hypertension (principal)
CPT/HCPCS: 36415; 80053